=== PATIENT | female | born 1995 | race Two or more races ===

== ENCOUNTER 2020-10-27 02:11 | Emergency (ER) | payer MEDICAID ==
[~2020-10-27] VITALS: Ht 175.3 cm; Wt 56.0 kg
[~2020-10-27 02:11] MED LIST: LISD70CA PO; QUET100T PO
[2020-10-27] MEDS ORDERED: KETOROLAC TROMETHAMINE 30 MG/ML VIAL IM ONE (02:45)
[2020-10-27] MEDS ORDERED: IBUPROFEN 800 MG TABLET PO ONE (03:00)
[2020-10-27 09:00] VITALS: BP 117/68
== END 2020-10-27 09:54 | disposition home or self-care (01) ==
LOC: EMS 02:17
DX: S90.32XA Contusion of left foot, initial encounter (principal); V03.90XA Pedestrian on foot injured in collision with car, pick-up truck or van, unspecified whether traffic or nontraffic accident, initial encounter; Y93.89 Activity, other specified; Y92.89 Other specified places as the place of occurrence of the external cause; Y99.8 Other external cause status
CPT/HCPCS: 84703; 99284